=== PATIENT | male | born 1965 | race Caucasian/White ===

== ENCOUNTER 2020-04-27 20:16 | Inpatient (IN) | payer MEDICAID, OTHER ==
[~2020-04-27] VITALS: Ht 182.9 cm; Wt 145.5 kg
[2020-04-27] MEDS ORDERED: LABETALOL 5MG/ML, 20ML IVPush ONE (20:30)
[2020-04-27] MEDS ORDERED: SODIUM CHLORIDE FLUSH 10ML SYR IVF ONE (20:30)
[2020-04-27] MEDS ORDERED: NITROGLYCERIN OINT 2%, 1GM TP ONE ×2 (20:35→21:00)
[2020-04-27] MEDS ORDERED: LABETALOL 5MG/ML, 20ML ONE (20:35)
[2020-04-27] MEDS ORDERED: NITROGLYCERIN/D5W PMX 250 ML IV PRN (20:38)
[2020-04-27 20:48] LABS: BASOPHILS # (AUTO) 0.03 x10^3/uL (0-0.1); BASOPHILS % (AUTO) 0 % (0-1); EOSINOPHILS # (AUTO) 0.23 x10^3/uL (0-0.4); EOSINOPHILS % (AUTO) 2 % (1-7); LYMPHOCYTES # (AUTO) 1.71 x10^3/uL (1-3.4); LYMPHOCYTES % (AUTO) 18 % (22-44); MD NO; MEAN CORPUSCULAR HGB CONC 34.2 g/dL (33.2-36.2); MEAN PLATELET VOLUME 8.3 fL (7.4-10.4); MONOCYTES # (AUTO) 0.48 x10^3/uL (0.2-0.8); MONOCYTES % (AUTO) 5 % (2-9); NEUTROPHILS % (AUTO) 75 % (42-75); PLATELET COUNT 191 x10^3/uL (130-400); RED BLOOD COUNT 5.63 x10^6/uL (4.38-5.82); RED CELL DISTRIBUTION WIDTH 13.2 % (9.4-14.8)
--- NOTE | 2020-04-27 20:48 | NUR ---
PT TRANSFERRED FROM [facility] C/O CHEST PAIN. PT A&OX4. PT HAD 1L NS AND NITRO DRIP INFUSING ON ARRIVAL. BOTH STOPPED PER MD ORDER. NITRO PASTE PLACED ON RIGHT CHEST. 18G LEFT POSTERIOR FOREARM AND RIGHT AC.
[2020-04-27 20:53] LABS: INTERNATIONAL NORMALIZED RATIO 0.93 (0.93-1.1); PROTHROMBIN TIME 9.9 Seconds (9.6-11.5)
[2020-04-27] MEDS ORDERED: METOPROLOL TARTRATE 50 MG TAB ONE (20:55)
[2020-04-27] MEDS ORDERED: HEPARIN 5,000 UNITS/ML, 1ML ONE (20:55)
[2020-04-27 20:57] LABS: ALBUMIN 3.3 g/dL (3.4-5.0); ANION GAP 8 mmol/L (5-15); CALCIUM 8.2 mg/dL (8.5-10.1); CHLORIDE 105 mmol/L (98-107)
[2020-04-27] MEDS ORDERED: HEPARIN 25,000 UNITS/250ML PMX 250 ML ONE (20:59)
[2020-04-27] MEDS ORDERED: HEPARIN 25,000 UNITS/250ML PMX 250 ML IV PRN (21:00)
[2020-04-27] MEDS ORDERED: BISACODYL 10 MG SUPP PR PRN (21:00)
[2020-04-27] MEDS ORDERED: ACETAMINOPHEN 650 MG/20.3 ML UDC PO PRN (21:00)
[2020-04-27] MEDS ORDERED: HEPARIN 5,000 UNITS/ML, 1ML IV ONE (21:00)
[2020-04-27] MEDS ORDERED: METOPROLOL TARTRATE 50 MG TAB PO ONE (21:00)
[2020-04-27] MEDS ORDERED: ONDANSETRON 2MG/ML, 2ML IV PRN (21:00)
[2020-04-27] MEDS ORDERED: ASPIRIN 325 MG TABLET EC PO ONE (21:00)
[2020-04-27] MEDS ORDERED: NITROGLYCERIN 0.4 MG/SPRAY SL PRN (21:00)
[2020-04-27 21:07] LABS: ALANINE AMINOTRANSFERASE 52 U/L (12-78); ALKALINE PHOSPHATASE 84 U/L (45-117); BILIRUBIN,TOTAL 0.5 mg/dL (0.2-1.0); CREATININE 0.88 mg/dL (0.7-1.3); TOTAL PROTEIN 7.6 g/dL (6.4-8.2)
[2020-04-27] MEDS ORDERED: MORPHINE SULFATE 4 MG/ML, 1ML ONE (21:14)
[2020-04-27] MEDS: SODIUM CHLORIDE 0.9% 1,000 ML IV SCH ×2 (21:18→22:45)
--- NOTE | 2020-04-27 21:29 | NUR ---
MED REQUESTED FROM PHARMACY, SNACK PROVIDED TO PATIENT
[2020-04-27] MEDS ORDERED: hydrALAzine 20 MG/ML, 1ML IV PRN (21:30)
[2020-04-27] MEDS: SODIUM CHLORIDE FLUSH 10ML SYR IVF SCH (22:43)
[2020-04-27] MEDS: LISINOPRIL 10 MG TABLET PO SCH (22:44)
[2020-04-27] MEDS: ATORVASTATIN 80 MG TABLET PO SCH (22:44)
[2020-04-27] MEDS: morphine SULFATE 10 MG/ML, 1ML IV PRN (22:46)
[2020-04-28 00:19] VITALS: BP 136/68
[2020-04-28] MEDS: NITROGLYCERIN OINT 2%, 1GM TP SCH ×3 (01:08→12:00)
[2020-04-28] MEDS ORDERED: METO25TA4 PO (02:25)
[2020-04-28] MEDS ORDERED: CLON0.1T2 PO (02:25)
[2020-04-28 03:35] LABS: BASOPHILS # (AUTO) 0.12 x10^3/uL (0-0.1); BASOPHILS % (AUTO) 1 % (0-1); EOSINOPHILS # (AUTO) 0.39 x10^3/uL (0-0.4); EOSINOPHILS % (AUTO) 4 % (1-7); LYMPHOCYTES # (AUTO) 3.12 x10^3/uL (1-3.4); LYMPHOCYTES % (AUTO) 34 % (22-44); MD NO; MEAN CORPUSCULAR HEMOGLOBIN 28.7 pg (27.5-34.5); MEAN CORPUSCULAR HGB CONC 33.3 g/dL (33.2-36.2); MEAN PLATELET VOLUME 8.5 fL (7.4-10.4); MONOCYTES # (AUTO) 0.83 x10^3/uL (0.2-0.8); MONOCYTES % (AUTO) 9 % (2-9); NEUTROPHILS # (AUTO) 4.68 x10^3/uL (1.8-6.8); NEUTROPHILS % (AUTO) 51 % (42-75); PLATELET COUNT 190 x10^3/uL (130-400); RED CELL DISTRIBUTION WIDTH 13.6 % (9.4-14.8)
[2020-04-28 03:44] LABS: ALANINE AMINOTRANSFERASE 49 U/L (12-78); ALBUMIN 2.9 g/dL (3.4-5.0); ANION GAP 7 mmol/L (5-15); CHLORIDE 107 mmol/L (98-107); CREATININE 0.77 mg/dL (0.7-1.3)
[2020-04-28 03:47] LABS: ALKALINE PHOSPHATASE 81 U/L (45-117); BILIRUBIN,TOTAL 0.5 mg/dL (0.2-1.0); CHOL/HDL RATIO 6.5; CHOLESTEROL, TOTAL 169 mg/dL (140-239); HDL CHOL % 15 % (26-37); HDL CHOLESTEROL (DIRECT) 26 mg/dL (40-60); TOTAL PROTEIN 6.7 g/dL (6.4-8.2); TRIGLYCERIDES 469 mg/dL (50-200)
[2020-04-28] MEDS: HEPARIN 5,000 UNITS/ML, 1ML IV PRN ×2 (04:20→10:49)
[2020-04-28] MEDS: CARVEDILOL 12.5 MG TABLET PO SCH ×2 (06:16→17:13)
[2020-04-28] MEDS: ASPIRIN 325 MG TABLET EC PO SCH (06:16)
[2020-04-28] MEDS: LISINOPRIL 10 MG TABLET PO SCH ×2 (08:12→20:55)
[2020-04-28] MEDS: SODIUM CHLORIDE FLUSH 10ML SYR IVF SCH ×2 (08:13→20:55)
[2020-04-28] MEDS: morphine SULFATE 10 MG/ML, 1ML IV PRN ×3 (08:25→20:56)
[2020-04-28] MEDS ORDERED: SODIUM CHLORIDE 0.9% 1,000 ML IV SCH (10:00)
[2020-04-28] MEDS ORDERED: FENTANYL PF 100 MCG/2ML ONE (11:55)
[2020-04-28] MEDS ORDERED: LIDOCAINE-MPF 1%, 5ML ONE (11:55)
[2020-04-28] MEDS ORDERED: HEPARIN 1,000 UNITS/ML, 10ML ONE (11:55)
[2020-04-28] MEDS ORDERED: VERAPAMIL 2.5 MG/ML, 2ML ONE (11:55)
[2020-04-28] MEDS ORDERED: MIDAZOLAM 1 MG/ML, 5ML ONE (11:55)
[2020-04-28] MEDS ORDERED: LIDOCAINE 2%, 20ML ONE (12:22)
[2020-04-28] MEDS ORDERED: TICAGRELOR 90 MG TABLET ONE (12:33)
[2020-04-28] MEDS ORDERED: BIVALIRUDIN 250 MG ONE (12:34)
[2020-04-28] MEDS ORDERED: BIVALIRUDIN 250 MG in SODIUM CHLORIDE 0.9% 50 ML IV SCH (12:54)
[2020-04-28] MEDS ORDERED: NICOTINE 21 MG/24 HR PATCH.TD24 TD ONE (13:00)
[2020-04-28] MEDS: SODIUM CHLORIDE 0.9% 1,000 ML IV SCH ×2 (13:52→20:54)
[2020-04-28 19:10] VITALS: BP 178/98
[2020-04-28] MEDS: ATORVASTATIN 80 MG TABLET PO SCH (20:54)
[2020-04-28] MEDS ORDERED: TICAGRELOR 90 MG TABLET PO SCH (21:00)
[2020-04-29 01:34] VITALS: BP 143/90
[2020-04-29] MEDS: SODIUM CHLORIDE 0.9% 1,000 ML IV SCH (04:54)
[2020-04-29 05:41] LABS: CHLORIDE 108 mmol/L (98-107)
[2020-04-29 05:44] LABS: ANION GAP 8 mmol/L (5-15); CREATININE 0.73 mg/dL (0.7-1.3)
[2020-04-29] MEDS: ASPIRIN 325 MG TABLET EC PO SCH (06:08)
[2020-04-29] MEDS: CARVEDILOL 12.5 MG TABLET PO SCH (06:08)
[2020-04-29 06:36] VITALS: BP 186/119
[2020-04-29] MEDS: morphine SULFATE 10 MG/ML, 1ML IV PRN (06:47)
[2020-04-29] MEDS ORDERED: ASPIRIN 81 MG TABLET EC PO SCH (09:00)
[2020-04-29] MEDS ORDERED: CARV12.52 PO ×2 (09:51)
[2020-04-29] MEDS ORDERED: ASPI81TA45 PO (09:51)
[2020-04-29] MEDS ORDERED: ATOR-2 PO (09:51)
[2020-04-29] MEDS ORDERED: LISI-167 PO (09:51)
[2020-04-29] MEDS ORDERED: PRAS10TA4 PO (09:51)
[2020-04-29] MEDS ORDERED: NITR0.4T28 SL (09:51)
[2020-04-29] MEDS: LISINOPRIL 10 MG TABLET PO SCH (09:54)
[2020-04-29] MEDS ORDERED: PRASUGREL 10 MG TABLET PO SCH (10:00)
[2020-05-09] MEDS ORDERED: ACET325T26 PO (09:31)
[2020-05-09] MEDS ORDERED: CLON0.1T22 PO (10:02)
[2020-05-09] MEDS ORDERED: CARV3.1212 PO (10:02)
[2020-05-09] MEDS ORDERED: HYDR-3245 PO (10:02)
== END 2020-04-29 11:38 | disposition home or self-care (01) | DRG 174 ==
LOC: ED 20:46 → EDIP 21:59 → CCU 22:02 → 5SO 04-28 18:27
PROVIDERS: ADMIT Internal Medicine; ATTEND Internal Medicine
PROC: 027034Z Dilation of Coronary Artery, One Artery with Drug-eluting Intraluminal Device, Percutaneous Approach (ICD-10-PCS; principal; 2020-04-28)
PROC: 4A023N7 Measurement of Cardiac Sampling and Pressure, Left Heart, Percutaneous Approach (ICD-10-PCS; 2020-04-28)
PROC: B211YZZ Fluoroscopy of Multiple Coronary Arteries using Other Contrast (ICD-10-PCS; 2020-04-28)
PROC: B215YZZ Fluoroscopy of Left Heart using Other Contrast (ICD-10-PCS; 2020-04-28)
DX: I21.4 Non-ST elevation (NSTEMI) myocardial infarction (principal); I10 Essential (primary) hypertension; E66.9 Obesity, unspecified; E78.5 Hyperlipidemia, unspecified; F17.210 Nicotine dependence, cigarettes, uncomplicated; E78.1 Pure hyperglyceridemia; T45.525A Adverse effect of antithrombotic drugs, initial encounter; I25.10 Atherosclerotic heart disease of native coronary artery without angina pectoris; M54.9 Dorsalgia, unspecified; I47.2 Ventricular tachycardia; Z82.49 Family history of ischemic heart disease and other diseases of the circulatory system; I25.2 Old myocardial infarction; Y92.89 Other specified places as the place of occurrence of the external cause; Z83.3 Family history of diabetes mellitus; Z68.41 Body mass index [BMI] 40.0-44.9, adult; I97.190 Other postprocedural cardiac functional disturbances following cardiac surgery; Y84.0 Cardiac catheterization as the cause of abnormal reaction of the patient, or of later complication, without mention of misadventure at the time of the procedure; Y92.239 Unspecified place in hospital as the place of occurrence of the external cause; E83.51 Hypocalcemia; E87.1 Hypo-osmolality and hyponatremia
CPT/HCPCS: 36415; 80048; 80053; 80061; 83036; 83735; 83880; 84484; 85025; 85520; 85610; 85730; 87081; 93005; 93306; 93356; 93458; 96374; 99156; 99157; C1760; C1894; C9600; G0378; J0583; J1644; J2250; J3010; C1725; C1769; C1874; C1887; J2270; J7030; Q9967

== ENCOUNTER 2020-06-30 07:06 | Outpatient (CLI) | payer SELFPAY ==
[~2020-06-30 07:06] MED LIST: ACET325T26 PO; ASPI81TA45 PO; ATOR-2 PO; CARV12.52 PO; CARV3.1212 PO; CLON0.1T2 PO; CLON0.1T22 PO; HYDR-3245 PO; LISI-167 PO; METO25TA4 PO; NITR0.4T28 SL; PRAS10TA4 PO
== END 2020-06-30 23:59 | disposition home or self-care (01) ==
LOC: CVU 07:06
PROVIDERS: ATTEND Internal Medicine Cardiovascular Disease
DX: I11.9 Hypertensive heart disease without heart failure (principal); I70.203 Unspecified atherosclerosis of native arteries of extremities, bilateral legs; I10 Essential (primary) hypertension; I22.1 Subsequent ST elevation (STEMI) myocardial infarction of inferior wall; Z87.891 Personal history of nicotine dependence
CPT/HCPCS: 93306; 93356; 93922; 93925

== ENCOUNTER → 2020-07-14 | Outpatient (CLI) | payer MEDICAID ==
[~2020-07-14] MED LIST changes: +OMNIPAQUE 350 MG/ML, 150 ML BOTTLE ONE
[2020-07-14 08:31] LABS: CREATININE 0.98 mg/dL (0.7-1.3)
== END | disposition home or self-care (01) ==
LOC: CFH 08:06
PROVIDERS: ATTEND Surgery
DX: I70.213 Atherosclerosis of native arteries of extremities with intermittent claudication, bilateral legs (principal); I77.1 Stricture of artery; N43.3 Hydrocele, unspecified
CPT/HCPCS: 36415; 75635; 82565; 84520; Q9967

== ENCOUNTER 2020-07-30 12:05 | Day surgery (SDC) | payer MEDICAID ==
[~2020-07-30] VITALS: Ht 182.9 cm; Wt 145.2 kg
[~2020-07-30 12:05] MED LIST changes: -OMNIPAQUE 350 MG/ML, 150 ML BOTTLE ONE
[2020-07-30] MEDS ORDERED: D5%-0.45% NACL 1,000 ML IV SCH (13:00)
[2020-07-30 13:14] VITALS: BP 157/76
[2020-07-30] MEDS ORDERED: CARV3.122 PO (13:33)
[2020-07-30] MEDS ORDERED: CLON0.1T2 PO (13:33)
[2020-07-30] MEDS ORDERED: HYDR25TA6 PO (13:33)
[2020-07-30] MEDS ORDERED: LISI-170 PO (13:33)
[2020-07-30] MEDS ORDERED: ASPIRIN PO (13:33)
[2020-07-30] MEDS ORDERED: FENTANYL PF 100 MCG/2ML ONE ×2 (13:33)
[2020-07-30] MEDS ORDERED: PRAS10TA4 PO (13:33)
[2020-07-30] MEDS ORDERED: MIDAZOLAM 1 MG/ML, 5ML ONE (13:33)
[2020-07-30] MEDS ORDERED: ATOR40TA78 PO (13:33)
[2020-07-30] MEDS ORDERED: HEPARIN 1,000 UNITS/ML, 10ML ONE ×2 (13:34→14:13)
[2020-07-30] MEDS ORDERED: PROTAMINE SULFATE 10 MG/ML, 25ML ONE (13:34)
[2020-07-30] MEDS ORDERED: NALOXONE 1 MG/ML, 2ML ONE (13:34)
[2020-07-30] MEDS ORDERED: FLUMAZENIL 0.1 MG/1 ML, 5ML ONE (13:34)
[2020-07-30 13:43] LABS: BASOPHILS % (AUTO) 1 % (0-1); EOSINOPHILS % (AUTO) 5 % (1-7); LYMPHOCYTES % (AUTO) 36 % (22-44); MEAN CORPUSCULAR HEMOGLOBIN 28.3 pg (27.5-34.5); MEAN CORPUSCULAR HGB CONC 33.9 g/dL (33.2-36.2); MEAN PLATELET VOLUME 8.4 fL (7.4-10.4); MONOCYTES % (AUTO) 8 % (2-9); NEUTROPHILS % (AUTO) 50 % (42-75); PLATELET COUNT 233 x10^3/uL (130-400); RED BLOOD COUNT 6.04 x10^6/uL (4.38-5.82); RED CELL DISTRIBUTION WIDTH 14.1 % (9.4-14.8)
[2020-07-30] MEDS ORDERED: LIDOCAINE 1%, 10ML ONE (13:45)
[2020-07-30 13:49] LABS: ALANINE AMINOTRANSFERASE 48 U/L (12-78); ALBUMIN 3.9 g/dL (3.4-5.0); ANION GAP 6 mmol/L (5-15); CALCIUM 9.2 mg/dL (8.5-10.1); CHLORIDE 105 mmol/L (98-107); CREATININE 0.92 mg/dL (0.7-1.3)
[2020-07-30 13:51] LABS: ALKALINE PHOSPHATASE 86 U/L (45-117); BILIRUBIN,TOTAL 0.6 mg/dL (0.2-1.0)
[2020-07-30 13:57] LABS: MD NO
[2020-07-30] MEDS ORDERED: NITROGLYCERIN 30 MCG/ML, 20ML VIAL ONE (14:13)
[2020-07-30] MEDS ORDERED: VERAPAMIL 2.5 MG/ML, 2ML ONE (14:13)
[2020-07-30] MEDS ORDERED: VISIPAQUE 270 MG/ML, 50ML BOTTLE ONE (14:30)
[2020-07-30] MEDS ORDERED: morphine SULFATE 10 MG/ML, 1ML IVPush PRN (16:00)
[2020-07-30] MEDS ORDERED: MORPHINE SULFATE 4 MG/ML, 1ML IVPush PRN (16:00)
== END 2020-07-30 17:00 | disposition home or self-care (01) ==
LOC: OUT 12:05
PROVIDERS: ATTEND Surgery
DX: I70.223 Atherosclerosis of native arteries of extremities with rest pain, bilateral legs (principal); I25.10 Atherosclerotic heart disease of native coronary artery without angina pectoris; I25.2 Old myocardial infarction; I10 Essential (primary) hypertension; J44.9 Chronic obstructive pulmonary disease, unspecified; E78.2 Mixed hyperlipidemia; F17.210 Nicotine dependence, cigarettes, uncomplicated; Z79.82 Long term (current) use of aspirin; Z79.899 Other long term (current) drug therapy; Z95.5 Presence of coronary angioplasty implant and graft; Z82.49 Family history of ischemic heart disease and other diseases of the circulatory system
CPT/HCPCS: 36415; 37228; 75710; 76937; 80053; 85025; 99156; 99157; C1769; C1894; J1644; J2250; J2270; J3010; Q9966; J2720; J2310

== ENCOUNTER 2020-10-31 05:13 | Inpatient (IN) | payer MEDICAID ==
[~2020-10-31] VITALS: Ht 182.9 cm; Wt 164.6 kg
[~2020-10-31 05:13] MED LIST changes: +ASPIRIN PO; +ATOR40TA78 PO; +CARV-39 PO; +CARV3.122 PO; -HYDR-3245 PO; +HYDR1TAB53 PO; +HYDR25TA6 PO; +LISI-170 PO; +NITR0.4T41 SL
[2020-10-31] MEDS ORDERED: CHLORHEXIDINE 15 ML UDC MM STA (06:02)
[2020-10-31] MEDS ORDERED: LACTATED RINGERS 1,000 ML IV SCH (06:30)
[2020-10-31] MEDS ORDERED: HEPARIN 1,000 UNITS/ML, 10ML ONE ×2 (06:47→07:06)
[2020-10-31] MEDS ORDERED: BUPIVACAINE/PF 0.5% ONE (06:47)
[2020-10-31] MEDS ORDERED: EPINEPHRINE 1 MG/ML, 1ML ONE (06:47)
[2020-10-31] MEDS ORDERED: PROTAMINE SULFATE 10 MG/ML, 5ML ONE (06:47)
[2020-10-31] MEDS ORDERED: THROMBIN 20,000 UNIT VIAL TP ONE (06:47)
[2020-10-31] MEDS ORDERED: HEPARIN 1,000 UNITS/ML, 30ML ONE (06:47)
[2020-10-31] MEDS ORDERED: BACITRACIN 50,000 UNIT ONE ×2 (06:48→11:22)
[2020-10-31 07:13] LABS: BASOPHILS % (AUTO) 1 % (0-1); EOSINOPHILS % (AUTO) 6 % (1-7); LYMPHOCYTES % (AUTO) 31 % (22-44); MD NO; MEAN CORPUSCULAR HEMOGLOBIN 29.2 pg (27.5-34.5); MEAN CORPUSCULAR HGB CONC 34.6 g/dL (33.2-36.2); MEAN PLATELET VOLUME 7.9 fL (7.4-10.4); MONOCYTES % (AUTO) 8 % (2-9); NEUTROPHILS % (AUTO) 55 % (42-75); PLATELET COUNT 217 x10^3/uL (130-400); RED BLOOD COUNT 5.88 x10^6/uL (4.38-5.82); RED CELL DISTRIBUTION WIDTH 13.7 % (9.4-14.8)
[2020-10-31 07:20] LABS: ALANINE AMINOTRANSFERASE 97 U/L (12-78); ALBUMIN 3.8 g/dL (3.4-5.0); ANION GAP 6 mmol/L (5-15); CALCIUM 8.8 mg/dL (8.5-10.1); CHLORIDE 106 mmol/L (98-107); CREATININE 0.88 mg/dL (0.7-1.3)
[2020-10-31 07:22] LABS: ALKALINE PHOSPHATASE 104 U/L (45-117); BILIRUBIN,TOTAL 0.6 mg/dL (0.2-1.0)
[2020-10-31] MEDS ORDERED: MIDAZOLAM 1 MG/ML, 2ML ONE (07:38)
[2020-10-31] MEDS ORDERED: FENTANYL PF 250 MCG/5ML ONE ×2 (07:40→13:18)
[2020-10-31] MEDS ORDERED: BUPIVACAINE/PF-EPI 0.5% 1:200K INFIL ONE ×2 (08:34→08:45)
[2020-10-31] MEDS ORDERED: BACITRACIN 50,000 UNIT IM ONE ×3 (08:34→11:30)
[2020-10-31] MEDS ORDERED: HEPARIN 5,000 UNITS/ML, 1ML SQ ONE ×2 (08:34→08:45)
[2020-10-31] MEDS ORDERED: PHENYLEPHRINE 10 MG/ML ONE (08:43)
[2020-10-31] MEDS ORDERED: KETOROLAC 30 MG/1 ML IV PRN (09:00)
[2020-10-31] MEDS ORDERED: ACETAMINOPHEN 325 MG TABLET PO PRN ×2 (09:00→16:30)
[2020-10-31] MEDS ORDERED: OXYcodone 5 MG/5 ML ORAL.SOL UDC PO PRN (09:00)
[2020-10-31] MEDS ORDERED: LABETALOL 5MG/ML, 20ML IV PRN (09:00)
[2020-10-31] MEDS ORDERED: ALBUTEROL SULFATE 2.5 MG/3 ML NPPB PRN (09:00)
[2020-10-31] MEDS ORDERED: DIAZEPAM 5 MG/ML, 2ML IVPush PRN (09:00)
[2020-10-31] MEDS ORDERED: MEPERIDINE/PF 25MG/0.5ML IVPush PRN (09:00)
[2020-10-31] MEDS ORDERED: PROMETHAZINE 25 MG/ML, 1ML IV PRN (09:00)
[2020-10-31] MEDS ORDERED: NEOSTIGMINE 1 MG/ML, 10ML ONE (13:18)
[2020-10-31] MEDS ORDERED: SUCCINYLCHOLINE 20 MG/ML, 10ML ONE (13:18)
[2020-10-31] MEDS ORDERED: ONDANSETRON 2MG/ML, 2ML ONE (13:18)
[2020-10-31] MEDS ORDERED: CEFAZOLIN 1,000 MG ONE ×2 (13:18)
[2020-10-31] MEDS ORDERED: GLYCOPYRROLATE 0.2MG/1ML, 5ML ONE (13:18)
[2020-10-31] MEDS ORDERED: METOPROLOL 1 MG/ML, 5ML ONE ×4 (13:18)
[2020-10-31] MEDS ORDERED: ROCURONIUM 10MG/ML,5ML ONE ×4 (13:18)
[2020-10-31] MEDS ORDERED: PROPOFOL 10 MG/ML, 20ML ONE (13:18)
[2020-10-31] MEDS ORDERED: hydrALAzine 20 MG/ML, 1ML ONE (14:02)
[2020-10-31] MEDS: FENTANYL PF 100 MCG/2ML IV PRN ×4 (14:05→14:35)
[2020-10-31] MEDS: hydrALAzine 20 MG/ML, 1ML IV PRN ×2 (14:05→14:44)
[2020-10-31] MEDS ORDERED: FENTANYL PF 100 MCG/2ML ONE ×2 (14:07→14:18)
[2020-10-31] MEDS ORDERED: HYDROmorphone 1 MG/ML, 1ML INJ ONE (14:18)
[2020-10-31] MEDS: HYDROmorphone 2 MG/ML, 1ML IVPush PRN ×5 (14:40→16:15)
[2020-10-31] MEDS ORDERED: HYDROmorphone 2 MG/ML, 1ML ONE (15:40)
[2020-10-31] MEDS ORDERED: ONDANSETRON 2MG/ML, 2ML IVPush PRN ×2 (16:00→16:30)
[2020-10-31] MEDS ORDERED: DIPHENHYDRAMINE 25 MG CAPSULE PO PRN (16:30)
[2020-10-31] MEDS ORDERED: ONDANSETRON ODT 4 MG PO PRN (16:30)
[2020-10-31] MEDS ORDERED: LABETALOL 5MG/ML, 20ML IVPush PRN (16:30)
[2020-10-31] MEDS ORDERED: ENALAPRILAT 1.25 MG/ML, 2ML IVPush PRN (16:30)
[2020-10-31] MEDS: HYDROcodone/APAP 5/325 TABLET PO PRN ×2 (17:28→21:44)
[2020-10-31] MEDS: morphine SULFATE 10 MG/ML, 1ML IVPush PRN (19:19)
[2020-10-31 20:00] VITALS: BP 149/81
[2020-10-31] MEDS: ATORVASTATIN 40 MG TABLET PO SCH (21:43)
[2020-10-31] MEDS: CARVEDILOL 25 MG TABLET PO SCH (21:44)
[2020-11-01 00:41] VITALS: BP 143/86
[2020-11-01] MEDS: morphine SULFATE 10 MG/ML, 1ML IVPush PRN ×6 (00:49→22:38)
[2020-11-01] MEDS: HYDROcodone/APAP 5/325 TABLET PO PRN ×4 (01:49→15:53)
[2020-11-01 04:28] LABS: BASOPHILS % (AUTO) 1 % (0-1); EOSINOPHILS % (AUTO) 1 % (1-7); LYMPHOCYTES % (AUTO) 23 % (22-44); MEAN CORPUSCULAR HEMOGLOBIN 29.5 pg (27.5-34.5); MEAN CORPUSCULAR HGB CONC 34.8 g/dL (33.2-36.2); MEAN PLATELET VOLUME 8.4 fL (7.4-10.4); MONOCYTES % (AUTO) 11 % (2-9); NEUTROPHILS % (AUTO) 65 % (42-75); PLATELET COUNT 181 x10^3/uL (130-400); RED BLOOD COUNT 4.79 x10^6/uL (4.38-5.82); RED CELL DISTRIBUTION WIDTH 13.8 % (9.4-14.8)
[2020-11-01 04:29] LABS: MD NO
[2020-11-01 04:40] LABS: ANION GAP 3 mmol/L (5-15); CALCIUM 8.1 mg/dL (8.5-10.1); CHLORIDE 101 mmol/L (98-107); CREATININE 0.89 mg/dL (0.7-1.3)
[2020-11-01 06:44] VITALS: BP 168/93
[2020-11-01] MEDS: SENNA/DOCUSATE TABLET PO SCH (10:05)
[2020-11-01] MEDS: CARVEDILOL 25 MG TABLET PO SCH ×2 (10:05→20:14)
[2020-11-01] MEDS: LISINOPRIL 20 MG TABLET PO SCH (10:06)
[2020-11-01] MEDS: PRASUGREL 10 MG TABLET PO SCH (11:40)
[2020-11-01] MEDS: ASPIRIN 81 MG TABLET EC PO SCH (11:41)
[2020-11-01 13:19] VITALS: BP 129/74
[2020-11-01 14:55] VITALS: BP 97/64
[2020-11-01] MEDS: POLYETHYLENE GLYCOL 17 GM PACKET PO SCH (16:30)
[2020-11-01] MEDS ORDERED: POLYETHYLENE GLYCOL 17 GM PACKET ONE (16:32)
[2020-11-01] MEDS: ATORVASTATIN 40 MG TABLET PO SCH (20:14)
[2020-11-01] MEDS: HYDROcodone/APAP 10/325 MG TABLET PO PRN (20:18)
[2020-11-01 20:37] VITALS: BP 125/77
[2020-11-01] MEDS: SODIUM CHLORIDE FLUSH 10ML SYR IVF SCH (21:00)
[2020-11-01] MEDS ORDERED: HEPARIN 5,000 UNITS/ML, 1ML ONE (21:36)
[2020-11-01] MEDS: HEPARIN 5,000 UNITS/ML, 1ML SQ SCH (21:40)
[2020-11-01] MEDS: INSULIN REGULAR 100 UNITS/ML, 3ML VIAL SQ-INSULIN SCH (22:00)
[2020-11-02 01:50] VITALS: BP 132/79
[2020-11-02] MEDS: HYDROcodone/APAP 10/325 MG TABLET PO PRN ×5 (01:52→20:59)
[2020-11-02] MEDS: morphine SULFATE 10 MG/ML, 1ML IVPush PRN ×2 (03:26→08:14)
[2020-11-02] MEDS: HEPARIN 5,000 UNITS/ML, 1ML SQ SCH ×3 (05:31→21:01)
[2020-11-02 05:45] LABS: ALBUMIN 3.2 g/dL (3.4-5.0); ANION GAP 7 mmol/L (5-15); CALCIUM 8.5 mg/dL (8.5-10.1); CHLORIDE 100 mmol/L (98-107)
[2020-11-02 05:48] LABS: CREATININE 0.87 mg/dL (0.7-1.3)
[2020-11-02] MEDS: INSULIN REGULAR 100 UNITS/ML, 3ML VIAL SQ-INSULIN SCH ×4 (06:20→21:00)
[2020-11-02 08:00] VITALS: BP 137/87
[2020-11-02] MEDS: ASPIRIN 81 MG TABLET EC PO SCH (08:12)
[2020-11-02] MEDS: POLYETHYLENE GLYCOL 17 GM PACKET PO SCH (08:13)
[2020-11-02] MEDS: LISINOPRIL 20 MG TABLET PO SCH (08:13)
[2020-11-02] MEDS: CARVEDILOL 25 MG TABLET PO SCH ×2 (08:13→20:59)
[2020-11-02] MEDS: SODIUM CHLORIDE FLUSH 10ML SYR IVF SCH ×2 (08:19→21:00)
[2020-11-02] MEDS: SENNA/DOCUSATE TABLET PO SCH (08:24)
[2020-11-02] MEDS: PRASUGREL 10 MG TABLET PO SCH (08:24)
[2020-11-02 12:35] VITALS: BP 119/66
[2020-11-02 19:15] VITALS: BP 137/76
[2020-11-02] MEDS: ATORVASTATIN 40 MG TABLET PO SCH (20:59)
[2020-11-03] MEDS: HYDROcodone/APAP 10/325 MG TABLET PO PRN ×5 (00:58→19:17)
[2020-11-03 02:14] VITALS: BP 112/76
[2020-11-03] MEDS: HEPARIN 5,000 UNITS/ML, 1ML SQ SCH ×3 (05:22→20:56)
[2020-11-03] MEDS: INSULIN REGULAR 100 UNITS/ML, 3ML VIAL SQ-INSULIN SCH (06:34)
[2020-11-03 06:50] VITALS: BP 147/81
[2020-11-03] MEDS: ASPIRIN 81 MG TABLET EC PO SCH (07:55)
[2020-11-03] MEDS: PRASUGREL 10 MG TABLET PO SCH (07:55)
[2020-11-03] MEDS: SENNA/DOCUSATE TABLET PO SCH (07:55)
[2020-11-03] MEDS: POLYETHYLENE GLYCOL 17 GM PACKET PO SCH (07:55)
[2020-11-03] MEDS: LISINOPRIL 20 MG TABLET PO SCH (07:56)
[2020-11-03] MEDS: SODIUM CHLORIDE FLUSH 10ML SYR IVF SCH ×2 (07:56→20:56)
[2020-11-03] MEDS: CARVEDILOL 25 MG TABLET PO SCH ×2 (07:56→20:57)
[2020-11-03] MEDS ORDERED: TRAZODONE 50MG TABLET PO PRN (10:30)
[2020-11-03 14:30] VITALS: BP 137/82
[2020-11-03] MEDS ORDERED: MAGNESIUM HYDROXIDE 8%, 30ML UDC ONE (17:55)
[2020-11-03] MEDS ORDERED: MAGNESIUM HYDROXIDE 8%, 30ML UDC PO PRN (18:00)
[2020-11-03 19:24] VITALS: BP 116/69
[2020-11-03] MEDS: ATORVASTATIN 40 MG TABLET PO SCH (20:57)
[2020-11-04 01:02] VITALS: BP 142/74
[2020-11-04] MEDS: HYDROcodone/APAP 10/325 MG TABLET PO PRN ×5 (01:09→17:53)
[2020-11-04 05:02] LABS: BASOPHILS % (AUTO) 1 % (0-1); EOSINOPHILS % (AUTO) 6 % (1-7); LYMPHOCYTES % (AUTO) 34 % (22-44); MEAN CORPUSCULAR HEMOGLOBIN 29.6 pg (27.5-34.5); MEAN CORPUSCULAR HGB CONC 34.8 g/dL (33.2-36.2); MEAN PLATELET VOLUME 7.9 fL (7.4-10.4); MONOCYTES % (AUTO) 8 % (2-9); NEUTROPHILS % (AUTO) 51 % (42-75); PLATELET COUNT 209 x10^3/uL (130-400); RED CELL DISTRIBUTION WIDTH 13.2 % (9.4-14.8)
[2020-11-04 05:03] LABS: MD NO
[2020-11-04 05:14] LABS: ANION GAP 5 mmol/L (5-15); CALCIUM 8.3 mg/dL (8.5-10.1); CHLORIDE 104 mmol/L (98-107); CREATININE 0.83 mg/dL (0.7-1.3)
[2020-11-04] MEDS: HEPARIN 5,000 UNITS/ML, 1ML SQ SCH ×2 (05:27→13:57)
[2020-11-04 07:20] VITALS: BP 133/87
[2020-11-04] MEDS: PRASUGREL 10 MG TABLET PO SCH (08:54)
[2020-11-04] MEDS: CARVEDILOL 25 MG TABLET PO SCH (08:54)
[2020-11-04] MEDS: ASPIRIN 81 MG TABLET EC PO SCH (08:54)
[2020-11-04] MEDS: SENNA/DOCUSATE TABLET PO SCH (08:54)
[2020-11-04] MEDS: POLYETHYLENE GLYCOL 17 GM PACKET PO SCH (08:55)
[2020-11-04] MEDS: LISINOPRIL 20 MG TABLET PO SCH (08:55)
[2020-11-04] MEDS: SODIUM CHLORIDE FLUSH 10ML SYR IVF SCH (08:55)
[2020-11-04 14:00] VITALS: BP 139/83
[2020-11-04] MEDS ORDERED: HYDR-3248 PO (18:02)
[2020-11-04] MEDS: morphine SULFATE 10 MG/ML, 1ML IVPush PRN (18:12)
== END 2020-11-04 18:20 | disposition home or self-care (01) | DRG 181 ==
LOC: ORIP 05:13 → 5SO 16:54 → 4NE 11-01 14:45
PROVIDERS: ADMIT Surgery; ATTEND Hospitalist
PROC: 06BP4ZZ Excision of Right Saphenous Vein, Percutaneous Endoscopic Approach (ICD-10-PCS; 2020-10-31)
PROC: 041 Lower Arteries, Bypass (ICD-10-PCS; principal; 2020-10-31 07:30)
DX: E11.51 Type 2 diabetes mellitus with diabetic peripheral angiopathy without gangrene (principal); E78.5 Hyperlipidemia, unspecified; I10 Essential (primary) hypertension; E66.01 Morbid (severe) obesity due to excess calories; I25.10 Atherosclerotic heart disease of native coronary artery without angina pectoris; I99.8 Other disorder of circulatory system; Z82.49 Family history of ischemic heart disease and other diseases of the circulatory system; Z68.42 Body mass index [BMI] 45.0-49.9, adult; I25.2 Old myocardial infarction
CPT/HCPCS: 36415; 71045; 80048; 80053; 82040; 82962; 83036; 85025; 85347; 86850; 86900; 87635; 93005; G0378; J0171; J0690; J1170; J1644; J2250; J2270; J2405; J2704; J2710; J2720; J3010; J0330; J0360; J2370; J7120; Q0163

== ENCOUNTER 2021-01-02 06:22 | Inpatient (IN) | payer MEDICAID ==
[~2021-01-02] VITALS: Ht 182.9 cm; Wt 166.3 kg
[~2021-01-02 06:22] MED LIST changes: +HYDR-3248 PO
[2021-01-02 07:42] LABS: BASOPHILS % (AUTO) 1 % (0-1); EOSINOPHILS % (AUTO) 5 % (1-7); LYMPHOCYTES % (AUTO) 36 % (22-44); MEAN CORPUSCULAR HGB CONC 34.9 g/dL (33.2-36.2); MONOCYTES % (AUTO) 7 % (2-9); NEUTROPHILS % (AUTO) 51 % (42-75); PLATELET COUNT 219 x10^3/uL (130-400); RED BLOOD COUNT 5.62 x10^6/uL (4.38-5.82); RED CELL DISTRIBUTION WIDTH 13.8 % (9.4-14.8)
[2021-01-02 07:44] VITALS: BP 188/129
[2021-01-02 07:45] LABS: MD NO
[2021-01-02 07:51] LABS: ALBUMIN 3.8 g/dL (3.4-5.0); ANION GAP 7 mmol/L (5-15); CALCIUM 8.9 mg/dL (8.5-10.1); CHLORIDE 105 mmol/L (98-107)
[2021-01-02 07:55] LABS: ALANINE AMINOTRANSFERASE 86 U/L (12-78); ALKALINE PHOSPHATASE 116 U/L (45-117); BILIRUBIN,TOTAL 0.6 mg/dL (0.2-1.0); CREATININE 0.87 mg/dL (0.7-1.3); TOTAL PROTEIN 8.1 g/dL (6.4-8.2)
[2021-01-02] MEDS ORDERED: LACTATED RINGERS 1,000 ML IV SCH (08:00)
[2021-01-02] MEDS ORDERED: CHLORHEXIDINE 15 ML UDC MM ONE (08:00)
[2021-01-02] MEDS ORDERED: CARVEDILOL 25 MG TABLET PO ONE (08:08)
[2021-01-02] MEDS ORDERED: BUPIVACAINE/PF 0.5% ONE (09:08)
[2021-01-02] MEDS ORDERED: PROTAMINE SULFATE 10 MG/ML, 25ML ONE (09:09)
[2021-01-02] MEDS ORDERED: EPINEPHRINE 1 MG/ML, 1ML ONE (09:09)
[2021-01-02] MEDS ORDERED: THROMBIN 20,000 UNIT VIAL TP ONE ×2 (09:09→15:10)
[2021-01-02] MEDS ORDERED: HEPARIN 1,000 UNITS/ML, 30ML ONE (09:09)
[2021-01-02] MEDS ORDERED: FENTANYL PF 250 MCG/5ML ONE (09:21)
[2021-01-02] MEDS ORDERED: MIDAZOLAM 1 MG/ML, 2ML ONE (09:21)
[2021-01-02] MEDS ORDERED: FENTANYL PF 100 MCG/2ML ONE ×3 (09:21→16:49)
[2021-01-02] MEDS ORDERED: PROPOFOL 50 ML ONE ×3 (09:23→15:09)
[2021-01-02] MEDS ORDERED: ASPIRIN 81 MG TABLET EC ONE (09:47)
[2021-01-02] MEDS ORDERED: ASPIRIN 81 MG TABLET CHEW PO ONE (09:48)
[2021-01-02] MEDS ORDERED: PHENYLEPHRINE 10 MG/ML ONE (09:52)
[2021-01-02] MEDS ORDERED: DEXAMETHASONE 4 MG/ML, 1ML ONE (09:52)
[2021-01-02] MEDS ORDERED: hydrALAzine 20 MG/ML, 1ML IV PRN (11:30)
[2021-01-02] MEDS ORDERED: LABETALOL 5MG/ML, 20ML IV PRN (11:30)
[2021-01-02] MEDS ORDERED: ALBUTEROL SULFATE 2.5 MG/3 ML NPPB PRN (11:30)
[2021-01-02] MEDS ORDERED: OXYcodone 5 MG/5 ML ORAL.SOL UDC PO PRN (11:30)
[2021-01-02] MEDS ORDERED: ACETAMINOPHEN 325 MG TABLET PO PRN (11:30)
[2021-01-02] MEDS ORDERED: LORazepam 2 MG/ML, 1ML IVPush PRN (11:30)
[2021-01-02] MEDS ORDERED: PROMETHAZINE 25 MG/ML, 1ML IVPush PRN (11:30)
[2021-01-02] MEDS ORDERED: MEPERIDINE/PF 25MG/0.5ML IVPush PRN (11:30)
[2021-01-02] MEDS ORDERED: CEFAZOLIN 1,000 MG ONE ×2 (12:51)
[2021-01-02] MEDS ORDERED: ONDANSETRON 2MG/ML, 2ML ONE (12:51)
[2021-01-02] MEDS ORDERED: LIDOCAINE-MPF 2% ,5ML ONE ×2 (12:51)
[2021-01-02] MEDS ORDERED: ROCURONIUM 10MG/ML,5ML ONE (12:51)
[2021-01-02] MEDS ORDERED: NEOSTIGMINE 1 MG/ML, 10ML ONE (12:51)
[2021-01-02] MEDS ORDERED: PROPOFOL 10 MG/ML, 20ML ONE (12:51)
[2021-01-02] MEDS ORDERED: SUCCINYLCHOLINE 20 MG/ML, 10ML ONE (12:51)
[2021-01-02] MEDS ORDERED: GLYCOPYRROLATE 0.2MG/1ML, 5ML ONE (12:51)
[2021-01-02] MEDS ORDERED: HYDROmorphone 1 MG/ML, 1ML INJ ONE ×3 (15:10→17:50)
[2021-01-02] MEDS: FENTANYL PF 100 MCG/2ML IV PRN ×4 (16:45→17:00)
[2021-01-02] MEDS ORDERED: OXYcodone 5 MG/5 ML ORAL.SOL UDC ONE (16:46)
[2021-01-02] MEDS: HYDROmorphone 1 MG/ML, 1ML INJ IVPush PRN ×2 (17:15→17:30)
[2021-01-02] MEDS ORDERED: hydrALAzine 20 MG/ML, 1ML ONE (17:53)
[2021-01-02] MEDS ORDERED: MEPERIDINE/PF 25MG/ML,1ML ONE (18:07)
[2021-01-02] MEDS ORDERED: NITROGLYCERIN 0.4 MG BOTTLE (25 TABS) SL PRN (19:30)
[2021-01-02] MEDS ORDERED: ONDANSETRON 2MG/ML, 2ML IV PRN (19:30)
[2021-01-02] MEDS: LACTATED RINGERS 1,000 ML IV SCH (19:30)
[2021-01-02] MEDS: HYDROcodone/APAP 5/325 TABLET PO PRN (19:51)
[2021-01-02 20:12] VITALS: BP 178/97
[2021-01-02 20:13] VITALS: BP 178/97
[2021-01-02] MEDS: SODIUM CHLORIDE FLUSH 10ML SYR IVF SCH (21:00)
[2021-01-02] MEDS: CARVEDILOL 25 MG TABLET PO SCH (21:39)
[2021-01-02] MEDS: ATORVASTATIN 80 MG TABLET PO SCH (21:40)
[2021-01-02] MEDS: DOCUSATE 100 MG CAPSULE PO SCH (21:40)
[2021-01-03 00:15] VITALS: BP 170/82
[2021-01-03] MEDS: LACTATED RINGERS 1,000 ML IV SCH ×3 (03:30→19:30)
[2021-01-03 04:24] VITALS: BP 173/91
[2021-01-03 06:36] VITALS: BP 196/111
[2021-01-03] MEDS ORDERED: LABETALOL 5MG/ML, 20ML IVPush PRN (07:00)
[2021-01-03] MEDS: ASPIRIN 81 MG TABLET EC PO SCH (07:55)
[2021-01-03] MEDS: CARVEDILOL 25 MG TABLET PO SCH ×2 (07:57→21:57)
[2021-01-03] MEDS: HYDROCHLOROTHIAZIDE 25 MG TABLET PO SCH (07:58)
[2021-01-03] MEDS: PRASUGREL 10 MG TABLET PO SCH (07:58)
[2021-01-03] MEDS: DOCUSATE 100 MG CAPSULE PO SCH ×2 (07:58→21:57)
[2021-01-03] MEDS: HEPARIN 5,000 UNITS/ML, 1ML SQ SCH ×3 (07:59→23:47)
[2021-01-03] MEDS: SODIUM CHLORIDE FLUSH 10ML SYR IVF SCH ×2 (07:59→21:58)
[2021-01-03] MEDS: LISINOPRIL 20 MG TABLET PO SCH (08:04)
[2021-01-03 08:06] VITALS: BP 159/82
[2021-01-03] MEDS: HYDROcodone/APAP 5/325 TABLET PO PRN (11:22)
[2021-01-03 13:08] VITALS: BP 101/64
[2021-01-03] MEDS ORDERED: ALUMINUM/MAG/SIMETHICONE 30 ML UDC PO PRN (19:30)
[2021-01-03] MEDS ORDERED: CALCIUM CARBONATE 500 MG TAB.CHEW PO PRN (19:30)
[2021-01-03 19:50] VITALS: BP 145/94
[2021-01-03] MEDS: ATORVASTATIN 80 MG TABLET PO SCH (21:58)
[2021-01-04 01:34] VITALS: BP 126/81
[2021-01-04] MEDS: LACTATED RINGERS 1,000 ML IV SCH ×2 (03:30→11:30)
[2021-01-04] MEDS: ASPIRIN 81 MG TABLET EC PO SCH (06:25)
[2021-01-04 06:50] LABS: BASOPHILS % (AUTO) 1 % (0-1); EOSINOPHILS % (AUTO) 2 % (1-7); LYMPHOCYTES % (AUTO) 31 % (22-44); MEAN CORPUSCULAR HEMOGLOBIN 28.4 pg (27.5-34.5); MEAN PLATELET VOLUME 7.9 fL (7.4-10.4); MONOCYTES % (AUTO) 8 % (2-9); NEUTROPHILS % (AUTO) 59 % (42-75); PLATELET COUNT 190 x10^3/uL (130-400)
[2021-01-04 06:51] LABS: MD NO
[2021-01-04 07:00] LABS: ALBUMIN 3.4 g/dL (3.4-5.0); ANION GAP 4 mmol/L (5-15); CALCIUM 8.6 mg/dL (8.5-10.1); CHLORIDE 101 mmol/L (98-107)
[2021-01-04 08:18] VITALS: BP 150/90
[2021-01-04] MEDS: HEPARIN 5,000 UNITS/ML, 1ML SQ SCH ×2 (09:46→17:32)
[2021-01-04] MEDS: DOCUSATE 100 MG CAPSULE PO SCH ×2 (09:47→20:23)
[2021-01-04] MEDS: SODIUM CHLORIDE FLUSH 10ML SYR IVF SCH ×2 (09:47→20:22)
[2021-01-04] MEDS: PRASUGREL 10 MG TABLET PO SCH (09:47)
[2021-01-04] MEDS: CARVEDILOL 25 MG TABLET PO SCH ×2 (09:47→20:22)
[2021-01-04] MEDS: LISINOPRIL 20 MG TABLET PO SCH (09:47)
[2021-01-04] MEDS: HYDROCHLOROTHIAZIDE 25 MG TABLET PO SCH (09:47)
[2021-01-04 13:15] VITALS: BP 121/62
[2021-01-04] MEDS: OXYcodone/APAP 10/325MG TABLET PO PRN ×2 (16:29→21:23)
[2021-01-04 19:11] VITALS: BP_SYST 126; BP_SYST 168; BP_DIAS 86; BP_DIAS 95
[2021-01-04] MEDS: ATORVASTATIN 80 MG TABLET PO SCH (20:22)
[2021-01-04 21:52] VITALS: BP 142/82
[2021-01-05] MEDS: OXYcodone/APAP 10/325MG TABLET PO PRN ×3 (01:09→10:18)
[2021-01-05] MEDS: HEPARIN 5,000 UNITS/ML, 1ML SQ SCH ×2 (01:09→10:19)
[2021-01-05 01:45] VITALS: BP 172/90
[2021-01-05] MEDS: ASPIRIN 81 MG TABLET EC PO SCH (05:28)
[2021-01-05] MEDS: CARVEDILOL 25 MG TABLET PO SCH (08:13)
[2021-01-05] MEDS: DOCUSATE 100 MG CAPSULE PO SCH (08:13)
[2021-01-05] MEDS: PRASUGREL 10 MG TABLET PO SCH (08:13)
[2021-01-05] MEDS: HYDROCHLOROTHIAZIDE 25 MG TABLET PO SCH (08:13)
[2021-01-05] MEDS: LISINOPRIL 20 MG TABLET PO SCH (08:14)
[2021-01-05 08:15] VITALS: BP 197/110
[2021-01-05 08:19] VITALS: BP 171/83
[2021-01-05 08:49] VITALS: BP 157/70
[2021-01-05] MEDS ORDERED: ATOR-2 PO (09:28)
[2021-01-05] MEDS ORDERED: OXYC-380 PO (09:28)
[2021-01-05 10:20] VITALS: BP 149/86
== END 2021-01-05 12:00 | disposition home or self-care (01) | DRG 181 ==
LOC: ORIP 06:22 → 4NE 18:40 → DCLOUNGE 01-05 11:54
PROVIDERS: ADMIT Surgery; ATTEND Surgery
PROC: 06BQ0ZZ Excision of Left Saphenous Vein, Open Approach (ICD-10-PCS; 2021-01-02)
PROC: 041L09M Bypass Left Femoral Artery to Peroneal Artery with Autologous Venous Tissue, Open Approach (ICD-10-PCS; principal; 2021-01-02 09:45)
DX: I70.222 Atherosclerosis of native arteries of extremities with rest pain, left leg (principal); E66.01 Morbid (severe) obesity due to excess calories; I25.10 Atherosclerotic heart disease of native coronary artery without angina pectoris; Z20.822 Contact with and (suspected) exposure to COVID-19; Z68.42 Body mass index [BMI] 45.0-49.9, adult; I25.2 Old myocardial infarction; Z95.5 Presence of coronary angioplasty implant and graft
CPT/HCPCS: 36415; 80048; 80053; 82040; 85025; 85347; 87635; G0378; J0171; J0690; J1100; J1170; J1644; J2175; J2250; J2270; J2405; J2704; J2710; J2720; J3010; J0330; J0360; J2370; J7120

== ENCOUNTER 2021-03-10 09:12 | Inpatient (IN) | payer MEDICAID ==
[~2021-03-10] VITALS: Ht 182.9 cm; Wt 156.3 kg
[~2021-03-10 09:12] MED LIST changes: +OXYC-380 PO
[2021-03-10] MEDS ORDERED: HEPARIN 25,000 UNITS/250ML PMX 250 ML ONE (09:44)
[2021-03-10] MEDS ORDERED: ASPIRIN 81 MG TABLET CHEW ONE (09:44)
[2021-03-10 09:48] LABS: BASOPHILS % (AUTO) 2 % (0-1); EOSINOPHILS % (AUTO) 6 % (1-7); LYMPHOCYTES % (AUTO) 39 % (22-44); MEAN CORPUSCULAR HEMOGLOBIN 27.8 pg (27.5-34.5); MEAN CORPUSCULAR HGB CONC 34.4 g/dL (33.2-36.2); MONOCYTES % (AUTO) 8 % (2-9); NEUTROPHILS % (AUTO) 47 % (42-75); PLATELET COUNT 263 x10^3/uL (130-400); RED BLOOD COUNT 5.79 x10^6/uL (4.38-5.82); RED CELL DISTRIBUTION WIDTH 14.4 % (9.4-14.8)
[2021-03-10 09:57] LABS: ALBUMIN 3.5 g/dL (3.4-5.0); ANION GAP 6 mmol/L (5-15); CALCIUM 8.5 mg/dL (8.5-10.1); CHLORIDE 108 mmol/L (98-107)
[2021-03-10] MEDS ORDERED: ASPIRIN 81 MG TABLET CHEW PO ONE (10:00)
[2021-03-10 10:02] LABS: CREATININE 0.83 mg/dL (0.7-1.3); TROPONIN I 0.072 ng/mL (0.000-0.045)
--- NOTE | 2021-03-10 10:03 | NUR ---
PT BIB CARE FLIGHT FROM [facility]. PER EMS PT HAD ELEVATED TROP AND DDIMER. PT TOOK 81MG ASA PRIOR TO ARRIVAL. PER EMS PT ALSO RECEIVED 7500UNIT HEPARIN BOLUS AND HAD 1800U/HR HEPARIN DRIP RUNNING UPON ARRIVAL. EKG DONE UPON ARRIVAL. DR. ORLANDO AT BEDSIDE FOR ORDERS AND EVAL. LEFT AC 20G PIV PLACED PRIOR TO ARRIVAL. SECOND 18G PIV PLACED IN R AC VIA ULTRASOUND GUIDED IV. PT STATES HE USED TO USE IV DRUGS, BUT HAS BEEN CLEAN FOR "MULTIPLE YEARS". PT RESTING IN [facility], MONITORING IN PLACE, NADN AT THIS TIME, CALL LIGHT WITHIN REACH, PER PT NO NEEDS AT THIS TIME, WCTM.
[2021-03-10] MEDS ORDERED: HEPARIN 25,000 UNITS/250ML PMX 250 ML IV PRN ×3 (10:30→18:30)
[2021-03-10] MEDS ORDERED: HEPARIN 5,000 UNITS/ML, 1ML IV PRN ×2 (10:30→12:00)
[2021-03-10] MEDS ORDERED: HEPARIN 5,000 UNITS/ML, 1ML IV ONE (10:30)
--- NOTE | 2021-03-10 10:30 | NUR ---
PT STATES HE HAD 81MG OF ASA EARLIER THIS MORNING. PER DR. ORLANDO PT GIVEN 81MG HERE AND NOT 162MG ASA.
--- NOTE | 2021-03-10 10:30 | NUR ---
PHARMACY CALLED TO VERIFY THAT HEPARIN BOLUS SHOULD NOT BE GIVEN. PT WAS GIVEN 7500UNITS BOLUS AT [facility]. PER PHARMACY WAIT TO GIVE BOLUS UNTIL [id number].
--- NOTE | 2021-03-10 10:52 | NUR ---
PT GIVEN WATER, PER DR. ORLANDO THAT IS OK.
[2021-03-10 11:27] VITALS: BP 144/85
[2021-03-10] MEDS ORDERED: ONDANSETRON 2MG/ML, 2ML IVPush PRN (11:30)
[2021-03-10] MEDS ORDERED: ACETAMINOPHEN 325 MG TABLET PO PRN (11:30)
[2021-03-10] MEDS ORDERED: NITROGLYCERIN 0.4 MG BOTTLE (25 TABS) SL PRN (11:30)
[2021-03-10] MEDS ORDERED: ENALAPRILAT 1.25 MG/ML, 2ML IVPush PRN (11:30)
[2021-03-10] MEDS ORDERED: DOCUSATE 100 MG CAPSULE PO PRN (11:30)
[2021-03-10] MEDS ORDERED: HYDROcodone/APAP 5/325 TABLET PO PRN (11:30)
[2021-03-10 12:50] VITALS: BP 134/86
[2021-03-10] MEDS: CARVEDILOL 25 MG TABLET PO SCH ×2 (12:54→20:28)
[2021-03-10 13:01] VITALS: BP 153/93
[2021-03-10] MEDS ORDERED: FURO20TA3 PO (13:28)
[2021-03-10 13:47] LABS: TROPONIN I 0.069 ng/mL (0.000-0.045)
[2021-03-10 17:07] LABS: TROPONIN I 0.053 ng/mL (0.000-0.045)
[2021-03-10] MEDS: HEPARIN 5,000 UNITS/ML, 1ML IV PRN (18:18)
[2021-03-10 20:21] VITALS: BP 146/87
[2021-03-10] MEDS: OXYcodone/APAP 10/325MG TABLET PO PRN (20:28)
[2021-03-10] MEDS: ATORVASTATIN 80 MG TABLET PO SCH (20:28)
[2021-03-11 01:17] LABS: BASOPHILS % (AUTO) 1 % (0-1); EOSINOPHILS % (AUTO) 6 % (1-7); LYMPHOCYTES % (AUTO) 41 % (22-44); MEAN CORPUSCULAR HEMOGLOBIN 28.1 pg (27.5-34.5); MEAN CORPUSCULAR HGB CONC 34.3 g/dL (33.2-36.2); MEAN PLATELET VOLUME 7.9 fL (7.4-10.4); MONOCYTES % (AUTO) 8 % (2-9); NEUTROPHILS % (AUTO) 43 % (42-75); PLATELET COUNT 245 x10^3/uL (130-400); RED BLOOD COUNT 5.44 x10^6/uL (4.38-5.82); RED CELL DISTRIBUTION WIDTH 14.5 % (9.4-14.8)
[2021-03-11 01:19] VITALS: BP 148/97
[2021-03-11 01:26] LABS: ALANINE AMINOTRANSFERASE 63 U/L (12-78); ANION GAP 8 mmol/L (5-15); CALCIUM 8.2 mg/dL (8.5-10.1); CHLORIDE 106 mmol/L (98-107)
[2021-03-11 01:29] LABS: ALKALINE PHOSPHATASE 91 U/L (45-117); BILIRUBIN,TOTAL 0.4 mg/dL (0.2-1.0); CREATININE 0.74 mg/dL (0.7-1.3); TOTAL PROTEIN 6.9 g/dL (6.4-8.2)
[2021-03-11] MEDS: HEPARIN 5,000 UNITS/ML, 1ML IV PRN ×2 (01:44→10:36)
[2021-03-11] MEDS ORDERED: REGADENOSON 0.4 MG/5 ML SYRINGE ONE (07:59)
[2021-03-11] MEDS: PRASUGREL 10 MG TABLET PO SCH (08:06)
[2021-03-11] MEDS: ASPIRIN 81 MG TABLET EC PO SCH (08:06)
[2021-03-11] MEDS: LISINOPRIL 20 MG TABLET PO SCH (08:07)
[2021-03-11] MEDS: CARVEDILOL 25 MG TABLET PO SCH ×2 (08:07→20:49)
[2021-03-11] MEDS: OXYcodone/APAP 10/325MG TABLET PO PRN ×3 (08:16→20:50)
[2021-03-11] MEDS ORDERED: FUROSEMIDE 20 MG TABLET PO SCH (09:00)
[2021-03-11 10:58] VITALS: BP 111/76
[2021-03-11 11:05] LABS: TROPONIN I 0.054 ng/mL (0.000-0.045)
[2021-03-11 14:20] VITALS: BP 137/85
[2021-03-11] MEDS ORDERED: HEPARIN 25,000 UNITS/250ML PMX 250 ML IV PRN (20:00)
[2021-03-11] MEDS ORDERED: HEPARIN 5,000 UNITS/ML, 1ML IV ONE (20:00)
[2021-03-11] MEDS ORDERED: HEPARIN 5,000 UNITS/ML, 1ML IV PRN (20:00)
[2021-03-11 20:02] VITALS: BP 187/137
[2021-03-11] MEDS: ATORVASTATIN 80 MG TABLET PO SCH (20:49)
[2021-03-11] MEDS: FUROSEMIDE 20 MG TABLET PO SCH (20:50)
[2021-03-12 01:15] VITALS: BP 153/102
[2021-03-12] MEDS: OXYcodone/APAP 10/325MG TABLET PO PRN ×3 (02:41→14:48)
[2021-03-12 07:05] VITALS: BP 152/93
[2021-03-12] MEDS: LISINOPRIL 20 MG TABLET PO SCH (08:05)
[2021-03-12] MEDS: FUROSEMIDE 20 MG TABLET PO SCH (08:05)
[2021-03-12] MEDS: ASPIRIN 81 MG TABLET EC PO SCH (08:06)
[2021-03-12] MEDS: CARVEDILOL 25 MG TABLET PO SCH (08:06)
[2021-03-12] MEDS: PRASUGREL 10 MG TABLET PO SCH (08:06)
[2021-03-12] MEDS ORDERED: RIVA1TAB PO ×3 (13:50→13:59)
[2021-03-12 13:56] VITALS: BP 179/98
[2021-03-12] MEDS ORDERED: RIVAROXABAN 15 MG TABLET PO ONE (14:30)
[2021-03-12] MEDS ORDERED: APIX5TAB PO ×3 (15:32→15:35)
[2021-03-13] MEDS ORDERED: OXYC-302 PO (13:44)
== END 2021-03-12 15:37 | disposition home or self-care (01) | DRG 190 ==
LOC: ED 09:52 → INTOOBSV 11:08 → OBSVTOIN 11:08 → 5SO 11:08
PROVIDERS: ADMIT Hospitalist; ATTEND Hospitalist
DX: I21.4 Non-ST elevation (NSTEMI) myocardial infarction (principal); E66.01 Morbid (severe) obesity due to excess calories; I11.0 Hypertensive heart disease with heart failure; I50.9 Heart failure, unspecified; I73.9 Peripheral vascular disease, unspecified; E78.00 Pure hypercholesterolemia, unspecified; I25.10 Atherosclerotic heart disease of native coronary artery without angina pectoris; J44.9 Chronic obstructive pulmonary disease, unspecified; Z87.891 Personal history of nicotine dependence; Z95.5 Presence of coronary angioplasty implant and graft; Z68.42 Body mass index [BMI] 45.0-49.9, adult
CPT/HCPCS: 36415; 71045; 71275; 78452; 80048; 80053; 82040; 84484; 85025; 85379; 85520; 93005; 93017; 93306; 93922; 93925; 96374; 96376; G0378; J1644; J2785; A9502